=== PATIENT | female | born 1980 | race Caucasian/White ===

== ENCOUNTER 2017-09-10 17:22 | Emergency (ER) | payer SELFPAY ==
[~2017-09-10] VITALS: Ht 157.5 cm; Wt 72.5 kg
[2017-09-10 18:07] VITALS: BP 142/97
[2017-09-10] MEDS ORDERED: ACYCLOVIR 200 MG CAPSULE PO ONE (18:30)
== END 2017-09-10 18:52 | disposition home or self-care (01) ==
LOC: EMS 17:23
DX: G51.0 Bell's palsy (principal); I10 Essential (primary) hypertension
CPT/HCPCS: 99282; 99283